=== PATIENT | female | born 1995 | race Caucasian/White ===

== ENCOUNTER 2021-08-18 19:43 | Emergency (ER) | payer MEDICARE, OTHER ==
[2021-08-18] MEDS ORDERED: MACROBID 100 M100 M1 PO (22:06)
== END 2021-08-18 22:22 | disposition home or self-care (01) ==
LOC: ER1 19:43
DX: O20.9 Hemorrhage in early pregnancy, unspecified (principal); O23.42 Unspecified infection of urinary tract in pregnancy, second trimester; N39.0 Urinary tract infection, site not specified; O99.891 Other specified diseases and conditions complicating pregnancy; R31.9 Hematuria, unspecified; Z88.8 Allergy status to other drugs, medicaments and biological substances; Z88.1 Allergy status to other antibiotic agents; Z3A.14 14 weeks gestation of pregnancy
CPT/HCPCS: 81001; 99284

== ENCOUNTER 2021-10-30 09:55 | Emergency (ER) | payer MEDICARE ==
[~2021-10-30 09:55] MED LIST: MACROBID 100 M100 M1 PO
[2021-10-30 11:21] LABS: HEMOGLOBIN 12.8 gm/dl (12.3-15.3); RED BLOOD COUNT 4.09 M/UL (4.00-5.10); WHITE BLOOD COUNT 11.4 K/UL (4.5-11.0)
[2021-10-30 12:00] LABS: BUN/CREATININE RATIO 18 (0-10)
== END 2021-10-30 13:17 | disposition home or self-care (01) ==
LOC: ER1 09:55
PROVIDERS: Emergency Medicine
DX: O99.891 Other specified diseases and conditions complicating pregnancy (principal); R07.89 Other chest pain; Z3A.25 25 weeks gestation of pregnancy
CPT/HCPCS: 71045; 80053; 82550; 82553; 84484; 85025; 93005; 99285

== ENCOUNTER 2021-12-19 02:00 | Outpatient (CLI) | payer MEDICARE, OTHER | END 2021-12-19 04:56 | disposition home or self-care (01) | LOC: GENOP 02:00 | DX: O99.891 Other specified diseases and conditions complicating pregnancy (principal); R10.2 Pelvic and perineal pain; Z3A.32 32 weeks gestation of pregnancy | CPT/HCPCS: 81001; 82731; G0463 ==

== ENCOUNTER 2022-01-03 23:40 | Outpatient (CLI) | payer MEDICARE | END 2022-01-04 00:45 | disposition home or self-care (01) | LOC: GENOP 23:40 | DX: O99.891 Other specified diseases and conditions complicating pregnancy (principal); R20.0 Anesthesia of skin; M79.89 Other specified soft tissue disorders; Z3A.35 35 weeks gestation of pregnancy | CPT/HCPCS: 81001; 82570; 84156; G0463 ==

== ENCOUNTER 2022-01-05 01:33 | Emergency (ER) | payer MEDICARE ==
[2022-01-05 02:41] LABS: HEMOGLOBIN 11.6 gm/dl (12.3-15.3); RED BLOOD COUNT 3.73 M/UL (4.00-5.10); WHITE BLOOD COUNT 10.6 K/UL (4.5-11.0)
[2022-01-05 03:00] LABS: BUN/CREATININE RATIO 17 (0-10)
== END 2022-01-05 04:25 | disposition home or self-care (01) ==
LOC: ER1 01:33
PROVIDERS: Emergency Medicine
DX: O99.891 Other specified diseases and conditions complicating pregnancy (principal); R73.9 Hyperglycemia, unspecified; R74.01 Elevation of levels of liver transaminase levels; Z3A.36 36 weeks gestation of pregnancy
CPT/HCPCS: 80053; 81001; 82009; 82962; 83690; 85025; 99284

== ENCOUNTER 2022-01-15 17:33 | Observation (INO) | payer MEDICARE ==
[~2022-01-15] VITALS: Ht 157.5 cm; Wt 114.3 kg
[2022-01-15] MEDS ORDERED: LEVEMIR100 UNIT/1 SC (19:03)
[2022-01-15] MEDS ORDERED: FERROUS SULFAT325 MG PO (19:03)
[2022-01-15] MEDS ORDERED: PRENATAL TABLE1 EAC6 PO (19:04)
[2022-01-15] MEDS ORDERED: FOLIC ACID 1 MG1 MG PO (19:05)
[2022-01-15] MEDS ORDERED: GLUCOPHAGE 500500 MG PO (19:05)
[2022-01-15 20:03] LABS: BUN/CREATININE RATIO 15 (0-10)
[2022-01-15 20:06] LABS: HEMOGLOBIN 12.2 gm/dl (12.3-15.3); RED BLOOD COUNT 3.87 M/UL (4.00-5.10); WHITE BLOOD COUNT 12.4 K/UL (4.5-11.0)
== END 2022-01-15 20:33 | disposition other institution (70) ==
LOC: GENOP 17:33 → OB 18:35
PROVIDERS: Obstetrics & Gynecology; ADMIT Obstetrics & Gynecology
DX: O14.93 Unspecified pre-eclampsia, third trimester (principal); O24.113 Pre-existing type 2 diabetes mellitus, in pregnancy, third trimester; O99.213 Obesity complicating pregnancy, third trimester; Z3A.36 36 weeks gestation of pregnancy; Z79.4 Long term (current) use of insulin; Z86.74 Personal history of sudden cardiac arrest; Z88.0 Allergy status to penicillin; Z87.59 Personal history of other complications of pregnancy, childbirth and the puerperium
CPT/HCPCS: 80053; 81001; 82570; 82962; 83615; 84156; 84550; 85025; G0378; J0690; J3475